=== PATIENT | female | born 1965 | race Caucasian/White ===

== ENCOUNTER 2019-10-14 17:51 | Emergency (ER) | payer SELFPAY ==
--- NOTE | 2019-10-14 18:19 | CT ---
CT OF THE BRAIN WITHOUT CONTRAST: 10/14/19 COMPARISON: None. HISTORY: History of TIA. Stroke. Headache that has now resolved. Left arm heaviness and dizziness. TECHNIQUE: Multiple contiguous axial images were obtained in a CT of the brain without contrast. FINDINGS: The brain is normal in morphology and attenuation without focal lesions or confluent areas of infarct ion. There is no evidence of hydrocephalus, intracranial hemorrhage or extra-axial fluid collection. The calvarium and overlying soft tissues are unremarkable. The visualized paranasal sinuses and masto id air cells are well aerated. IMPRESSION: No evidence of acute intracranial abnormality. Dr. Joseph notified of the findings at 6:08 p.m. on 10/14/19. POS: SEA
[2019-10-14 18:28] LABS: #Basophils 0.1 thou/uL (0.0-0.2); #Eosinphils 0.4 thou/uL (0.0-0.7); #Lymphocytes 3.1 thou/uL (1.20-3.40); #Monocytes 0.8 thou/uL (0.11-0.59); #Neutrophils 5.5 thou/uL (1.40-6.50); %Basophils 0.8 % (0.0-1.0); %Lymphocytes 31.4 % (21.0-51.0); %Monocytes 8.3 % (0.0-10.0); %Neutrophils 55.5 % (42.0-75.0); Mean Corpuscular HGB CONC 33.5 g/dL (32.0-36.0); Mean Corpuscular Hemoglobin 29.5 pg (27.0-31.0); Mean Platelet Volume 7.7 fL (7.4-10.4); Platelet Count 382 thou/uL (130-400); Red Blood Cell (RBC) Count 4.76 mill/uL (4.20-5.40)
[2019-10-14 18:35] LABS: Bacteria/HPF None Seen HPF (None Seen); Bilirubin Negative (Negative); Blood, Urine Trace (Negative); Clarity Clear (Clear); Glucose, Urine (Dipstick) Normal (Negative); Leukocyte Negative Leu/uL (Negative); Nitrite Negative (Negative); Protein, Urine (Dipstick) Negative (Neg-Trace); RBC/HPF 0-3 HPF (0-3); Squamous Epithelial None Seen HPF (0-3); Urobilinogen Normal mg/dL (Less than 2); WBC/HPF 0-3 HPF (0-3)
[2019-10-14 18:35] LABS: ALT (SGPT) 13 U/L (8-55); AST (SGOT) 14 U/L (5-34); Albumin 4.5 g/dL (3.5-5.0); Alkaline Phosphatase 129 U/L (40-110); Anion Gap 14 mmol/L (10-20); BUN (Urea Nitrogen) 8 mg/dL (9.8-20.1); Bilirubin, Total 0.3 mg/dL (0.2-1.2); Calc. Creatinine Clearance 0 mL/min (70-130); Carbon Dioxide 24 mmol/L (22-29); Chloride 102 mmol/L (98-107); Estimated GFR-MDRD 75; Globulin 3.2 g/dL (2.4-3.5); Glucose 110 mg/dL (70-105); Potassium 3.3 mmol/L (3.5-5.1); Protein, Total 7.7 g/dL (6.0-8.3); Sodium 137 mmol/L (136-145)
[2019-10-14] MEDS ORDERED: Potassium Chloride 20 MEQ TAB ONE (18:53)
--- NOTE | 2019-10-17 14:08 | EKG ---
Test Reason : Blood Pressure : / mmHG Vent. Rate : 072 BPM Atrial Rate : 072 BPM P-R Int : 140 ms QRS Dur : 084 ms QT Int : 392 ms P-R-T Axes : 032 039 039 degrees QTc Int : 429 ms Normal sinus rhythm Normal ECG Confirmed by STANISLAV CEDILLO ([id number]), field map editor ANNIE YOUNG ([id number]) on 10/17/2019 2:07:59 PM Referred By: Confirmed By:STANISLAV CEDILLO
== END 2019-10-14 19:04 | disposition home or self-care (01) ==
LOC: ERS 17:51
DX: E87.6 Hypokalemia (principal); E78.5 Hyperlipidemia, unspecified; E78.00 Pure hypercholesterolemia, unspecified; F17.210 Nicotine dependence, cigarettes, uncomplicated; Z79.82 Long term (current) use of aspirin; Z79.899 Other long term (current) drug therapy; Z86.73 Personal history of transient ischemic attack (TIA), and cerebral infarction without residual deficits
CPT/HCPCS: 36416; 70450; 80053; 81003; 81015; 84484; 85025; 93005; 94760

== ENCOUNTER 2023-02-05 13:20 | Outpatient (CLI) | payer OTHER | END 2023-02-05 13:21 | disposition home or self-care (01) | LOC: BICMAMMO 13:20 | PROVIDERS: ATTEND Internal Medicine | DX: C50.412 Malignant neoplasm of upper-outer quadrant of left female breast (principal) | CPT/HCPCS: 77066; G0279 ==

== ENCOUNTER 2023-04-19 11:19 | Outpatient (CLI) | payer OTHER | END 2023-04-19 11:20 | disposition home or self-care (01) | LOC: SCSMRI 11:19 | PROVIDERS: ATTEND Family Medicine | DX: R25.1 Tremor, unspecified (principal); G89.29 Other chronic pain; I67.89 Other cerebrovascular disease | CPT/HCPCS: 70551 ==

== ENCOUNTER 2024-07-14 09:24 | Outpatient (CLI) | payer OTHER | END 2024-07-14 09:25 | disposition home or self-care (01) | LOC: CT 09:24 | PROVIDERS: ATTEND Radiology Radiation Oncology | DX: Z12.2 Encounter for screening for malignant neoplasm of respiratory organs (principal); C50.312 Malignant neoplasm of lower-inner quadrant of left female breast; Z87.891 Personal history of nicotine dependence | CPT/HCPCS: 71271 ==